=== PATIENT | female | born 1950 | race Caucasian/White ===

== ENCOUNTER 2024-11-15 00:56 | Inpatient (IN) | payer MEDICARE, MEDICAID ==
[2024-11-15 01:24] LABS: O2 DELIVERY DEVICE NASAL CANNULA
[2024-11-15 01:25] LABS: BASOPHILS PERCENT AUTO 0.2 % (0.0-1.0); EOSINOPHILS PERCENT AUTO 2.2 % (1.0-3.0); HEMATOCRIT 40.6 % (37.0-47.0); LYMPHOCYTES PERCENT AUTO 34.3 % (20.5-50.1); MEAN CORPUSCULAR HEMOGLOBIN 33.8 pg (27.0-34.0); MEAN CORPUSCULAR VOLUME 105.5 fL (80-100); MONOCYTES PERCENT AUTO 11.7 % (2-8); NEUTROPHILS PERCENT AUTO 51.6 % (42.2-75.2); PLATELET COUNT,PLT 108 10^3/uL (150-450); RED BLOOD CELL COUNT 3.85 10^6/uL (4.2-5.4)
[2024-11-15 01:41] LABS: PH,VENOUS 7.34 (7.31-7.41)
[2024-11-15 01:42] LABS: BASE EXCESS VENOUS 17.3 mmol/l ((-2)-(+3)); BICARBONATE,VENOUS 48 mmol/l (19-25); O2 SATURATION VENOUS 74.5 % (60-80); PCO2 VENOUS 91 mmHg (41-51); PO2 VENOUS 49 mmHg (35-42)
[2024-11-15 01:49] LABS: ALANINE AMINOTRANSFERASE,ALT 20 U/L (14-59); ALBUMIN 2.1 g/dL (3.4-5.0); ALKALINE PHOSPHATASE 128 U/L (46-116); ASPARTATE AMNIOTRANSFERASE,AST 37 U/L (15-37); BILIRUBIN TOTAL 0.3 mg/dL (0.2-1.0); BLOOD UREA NITROGEN,BUN 9 mg/dL (7-18); BUN/CREATININE RATIO 11.5 (No establ ref range); CALCIUM 8.5 mg/dL (8.5-10.1); CREATININE 0.78 mg/dL (0.55-1.02); GLUCOSE RANDOM 192 mg/dL (70-99); LACTIC ACID 1.8 mmol/L (0.4-2.0); MAGNESIUM 1.7 mg/dL (1.8-2.4); POTASSIUM,K 3.8 mmol/L (3.5-5.1); PROTEIN TOTAL,TP 7.6 g/dL (6.4-8.2); SODIUM,NA 141 mmol/L (136-145)
[2024-11-15 01:51] LABS: B-TYPE NATRIURETIC PEPTIDE,BNP 17 pg/ml (0-100)
[2024-11-15 01:55] LABS: ANION GAP 2.8 mEq/L (7-13); CARBON DIOXIDE,CO2 45 mmol/L (21-32); CHLORIDE,CL 97 mmol/L (98-107)
[2024-11-15] MEDS: Albuterol/Ipratropium 3.0-0.5 MG/3 ML Neb Soln NEB ONE (01:57)
[2024-11-15 01:58] LABS: A/G RATIO 0.38; ESTIMATED GFR 80 mL/min (>=60)
[2024-11-15 03:12] LABS: O2 DELIVERY DEVICE NASAL CANNULA
[2024-11-15 03:14] LABS: PH,VENOUS 7.32 (7.31-7.41)
[2024-11-15 03:15] LABS: BASE EXCESS VENOUS 16.9 mmol/l ((-2)-(+3)); BICARBONATE,VENOUS 47 mmol/l (19-25); O2 SATURATION VENOUS 50.8 % (60-80); PCO2 VENOUS 95 mmHg (41-51); PO2 VENOUS 35 mmHg (35-42)
[2024-11-15] MEDS: guaiFENesin/Dextromethorphan 100-10 MG/5 ML Soln 5 ML Cup PO ONE (03:25)
[2024-11-15] MEDS: methylPREDNISolone Sodium Succinate 125 MG/2 ML SDV IVPUSH ONE (03:54)
[2024-11-15 05:40] LABS: O2 DELIVERY DEVICE NASAL CANNULA
[2024-11-15 05:41] LABS: PH,VENOUS 7.31 (7.31-7.41)
[2024-11-15 05:42] LABS: BASE EXCESS VENOUS 15.8 mmol/l ((-2)-(+3)); BICARBONATE,VENOUS 46 mmol/l (19-25); O2 SATURATION VENOUS 82.3 % (60-80); PCO2 VENOUS 94 mmHg (41-51); PO2 VENOUS 56 mmHg (35-42)
[2024-11-15] MEDS ORDERED: Polyethylene Glycol 3350 Powder 17 GM Packet PO PRN (07:50)
[2024-11-15] MEDS ORDERED: Ondansetron 4 MG/2 ML SDV IVPUSH PRN (07:50)
[2024-11-15] MEDS ORDERED: Ketorolac 30 MG/ML SDV IVPUSH PRN (07:50)
[2024-11-15] MEDS: Iopamidol 755 Mg/ML 100 ML Bottle IVPUSH ONE (08:12)
[2024-11-15] MEDS ORDERED: Sennosides/Docusate Sodium 50-8.6 MG Tab PO PRN (08:20)
[2024-11-15] MEDS ORDERED: Magnesium Hydroxide 400 MG/5 ML Susp 30 ML Cup PO PRN (08:20)
[2024-11-15] MEDS ORDERED: Calcium Carbonate 500 MG Tab.Chew PO PRN (08:20)
[2024-11-15 08:47] LABS: INR 2.4 (0.9-1.2); PROTHROMBIN TIME 23.5 SEC (9.0-12.0); PTT,PARTIAL THROMBOPLSTIN TIME 35.3 SEC (22.0-34.0)
[2024-11-15] MEDS: cefTRIAXone 2 GM Vial IVPUSH SCH (09:39)
[2024-11-15] MEDS: Azithromycin 500 MG in Sodium Chloride 0.9% 250 ML IV SCH (09:46)
[2024-11-15 11:45] LABS: O2 DELIVERY DEVICE ROOM AIR
[2024-11-15 11:48] LABS: PH,VENOUS 7.33 (7.31-7.41)
[2024-11-15 11:50] LABS: BASE EXCESS VENOUS 15.9 mmol/l ((-2)-(+3)); BICARBONATE,VENOUS 46 mmol/l (19-25); O2 SATURATION VENOUS 92.7 % (60-80); PCO2 VENOUS 90 mmHg (41-51); PO2 VENOUS 71 mmHg (35-42)
[2024-11-15] MEDS ORDERED: Glucagon,Human Recombinant 1 MG Vial IM PRN (11:52)
[2024-11-15] MEDS ORDERED: 50% Dextrose in Water 50 ML Syringe IVPUSH PRN (11:52)
[2024-11-15] MEDS: atorvaSTATin 20 MG Tab PO SCH (13:03)
[2024-11-15] MEDS: Furosemide 20 MG Tab PO SCH (13:04)
[2024-11-15] MEDS: methylPREDNISolone Sodium Succinate 125 MG/2 ML SDV IVPUSH SCH (13:06)
[2024-11-15] MEDS: Insulin Lispro 100 Units/ML 3 ML Vial SUBCUT SCH (13:11)
[2024-11-15 14:14] LABS: O2 DELIVERY DEVICE BIPAP
[2024-11-15 14:15] LABS: PH,VENOUS 7.32 (7.31-7.41)
[2024-11-15 14:17] LABS: BICARBONATE,VENOUS 45 mmol/l (19-25); O2 SATURATION VENOUS 80.9 % (60-80); PCO2 VENOUS 90 mmHg (41-51); PO2 VENOUS 53 mmHg (35-42)
[2024-11-15] MEDS: Nystatin Topical Powder 60 GM Bottle TOP SCH (14:24)
[2024-11-15] MEDS: Albuterol/Ipratropium 3.0-0.5 MG/3 ML Neb Soln NEB SCH (14:24)
[2024-11-15] MEDS: Citric Acid/Sodium Citrate Solution 30 ML Cup PO SCH (14:24)
[2024-11-15] MEDS: Warfarin 2 MG Tab PO ONE (14:33)
[2024-11-15] MEDS: Albuterol/Ipratropium 3.0-0.5 MG/3 ML Neb Soln ONE (15:17)
[2024-11-15] MEDS: Metoprolol Tartrate 25 MG Tab PO SCH (15:26)
[2024-11-15] MEDS: guaiFENesin 600 MG Tab.ER PO SCH (17:22)
[2024-11-15] MEDS: amLODIPine 5 MG Tab PO SCH (20:23)
[2024-11-15] MEDS: Insulin Glarg,Human.Rec.Analog 100 Unit/ML 10 ML Vial SUBCUT SCH (23:15)
[2024-11-16 06:44] LABS: HEMATOCRIT 37.3 % (37.0-47.0); HEMOGLOBIN 11.5 g/dL (12.0-16.0); LYMPHOCYTES PERCENT AUTO 28.3 % (20.5-50.1); MEAN CORPUSCULAR HEMOGLOBIN 32.7 pg (27.0-34.0); MEAN CORPUSCULAR HGB CONC 30.8 g/dL (33.0-35.0); MONOCYTES PERCENT AUTO 4.4 % (2-8); NEUTROPHILS PERCENT AUTO 67.3 % (42.2-75.2); PLATELET COUNT,PLT 119 10^3/uL (150-450); RED BLOOD CELL COUNT 3.52 10^6/uL (4.2-5.4); WHITE BLOOD CELL COUNT,WBC 4.7 10^3/uL (5.0-10.0)
[2024-11-16 07:27] LABS: INR 2.2 (0.9-1.2); PROTHROMBIN TIME 21.7 SEC (9.0-12.0); PTT,PARTIAL THROMBOPLSTIN TIME 33.2 SEC (22.0-34.0)
[2024-11-16 07:41] LABS: ALBUMIN 2.2 g/dL (3.4-5.0); ANION GAP 3.6 mEq/L (7-13); BILIRUBIN TOTAL 0.3 mg/dL (0.2-1.0); CALCIUM 8.6 mg/dL (8.5-10.1); CREATININE 0.86 mg/dL (0.55-1.02); EST CRCL DRUG DOSING (CG) 49.56 mL/min; MAGNESIUM 1.8 mg/dL (1.8-2.4); POTASSIUM,K 3.6 mmol/L (3.5-5.1); PROTEIN TOTAL,TP 7.3 g/dL (6.4-8.2)
[2024-11-16 07:45] LABS: A/G RATIO 0.43
[2024-11-16] MEDS: Magnesium Oxide 400 MG Tab PO SCH (10:35)
[2024-11-16] MEDS: Insulin Glarg,Human.Rec.Analog 100 Unit/ML 10 ML Vial SUBCUT SCH ×2 (11:00→21:22)
[2024-11-16] MEDS: Warfarin** 1 MG TABLET PO ONE (14:33)
[2024-11-16 15:48] LABS: HEMOGLOBIN A1C 7.5 % (<5.7)
[2024-11-16] MEDS: Benzonatate 100 MG Cap PO PRN (15:54)
[2024-11-16] MEDS: Cyanocobalamin (Vitamin B12) 1,000 MCG Tab PO SCH (15:54)
[2024-11-16] MEDS: Folic Acid 1 MG Tab PO SCH (15:54)
[2024-11-16] MEDS: Furosemide 40 MG/4 ML VIAL IVPUSH SCH (15:56)
[2024-11-16] MEDS ORDERED: Insulin Glarg,Human.Rec.Analog 100 Unit/ML 10 ML Vial SUBCUT SCH (21:00)
[2024-11-16] MEDS: Melatonin 3 MG Tab PO PRN (21:17)
[2024-11-17] MEDS: Pantoprazole 40 MG Tab.CR PO SCH (04:50)
[2024-11-17 06:26] LABS: HEMATOCRIT 37.5 % (37.0-47.0); HEMOGLOBIN 11.6 g/dL (12.0-16.0); MEAN CORPUSCULAR HEMOGLOBIN 32.9 pg (27.0-34.0); MEAN CORPUSCULAR HGB CONC 30.9 g/dL (33.0-35.0); MEAN CORPUSCULAR VOLUME 106.2 fL (80-100); PLATELET COUNT,PLT 125 10^3/uL (150-450); RED BLOOD CELL COUNT 3.53 10^6/uL (4.2-5.4); WHITE BLOOD CELL COUNT,WBC 5.8 10^3/uL (5.0-10.0)
[2024-11-17 06:27] LABS: INR 2.1 (0.9-1.2); PROTHROMBIN TIME 20.6 SEC (9.0-12.0)
[2024-11-17 06:31] LABS: LYMPHOCYTES PERCENT AUTO 24.3 % (20.5-50.1); MONOCYTES PERCENT AUTO 3.6 % (2-8); NEUTROPHILS PERCENT AUTO 72.1 % (42.2-75.2)
[2024-11-17 06:35] LABS: ALBUMIN 2.2 g/dL (3.4-5.0); ANION GAP 3.6 mEq/L (7-13); BILIRUBIN TOTAL 0.2 mg/dL (0.2-1.0); BUN/CREATININE RATIO 24.5 (No establ ref range); CALCIUM 8.4 mg/dL (8.5-10.1); CREATININE 0.94 mg/dL (0.55-1.02); EST CRCL DRUG DOSING (CG) 45.34 mL/min; POTASSIUM,K 3.6 mmol/L (3.5-5.1); PROTEIN TOTAL,TP 7.2 g/dL (6.4-8.2)
[2024-11-17 06:37] LABS: A/G RATIO 0.44
[2024-11-17 06:55] LABS: LYMPHOCYTES % ATYPICAL MANUAL 3 %; LYMPHOCYTES PERCENT MAN 19 % (20-50); MONOCYTES PERCENT MAN 2 % (2-8); SEG NEUTROPHILS PERCENT MAN 76 % (42-75)
[2024-11-17] MEDS: Insulin Glarg,Human.Rec.Analog 100 Unit/ML 10 ML Vial SUBCUT SCH (08:50)
[2024-11-17] MEDS: Furosemide 40 MG/4 ML VIAL IVPUSH SCH (08:53)
[2024-11-17 09:50] LABS: O2 DELIVERY DEVICE NASAL CANNULA
[2024-11-17 09:51] LABS: ALLEN TEST Y; BASE EXCESS ARTERIAL 16 mmol/L ((-2)-(+3)); BICARBONATE,ARTERIAL 43.2 mmol/L (22-26); O2 FLOW RATE 3; O2 SATURATION ARTERIAL 94 % (95-100); PH,ARTERIAL 7.43 (7.35-7.45); PO2 ARTERIAL 74 mmHg (70-100)
[2024-11-17 09:53] LABS: PCO2 ARTERIAL 66 mmHg (35-45)
[2024-11-17 10:26] LABS: APPEARANCE,URINE CLOUDY (CLEAR); BILIRUBIN,URINE NEGATIVE (NEGATIVE); COLOR,URINE PINK (YELLOW); GLUCOSE,URINE 250 (NEGATIVE); KETONES,URINE NEGATIVE (NEGATIVE); LEUKOCYTE ESTERASE,URINE LARGE (NEGATIVE); NITRITE,URINE NEGATIVE (NEGATIVE); OCCULT BLOOD,URINE LARGE (NEGATIVE); PROTEIN,URINE TRACE (NEGATIVE); UROBILINOGEN,URINE 0.2 mg/dL (0.2-1.0)
[2024-11-17 10:40] LABS: BACTERIA,URINE FEW /HPF (0-FEW/HPF); EPITHELIAL CELLS,URINE FEW /HPF (NOT SEEN); MUCUS,URINE FEW /LPF (NOT SEEN); RBC,URINE PACKED /HPF (0-5); WBC,URINE PACKED /HPF (0-5/HPF); YEAST,URINE MODERATE /HPF (NOT SEEN)
[2024-11-17] MEDS ORDERED: Benzonatate 100 MG Cap PO PRN (12:15)
[2024-11-17] MEDS: Formoterol/Mometasone 200-5 MCG 8.8 GM Inhaler INH SCH (14:35)
[2024-11-17] MEDS: Warfarin 2 MG Tab PO ONE (16:09)
[2024-11-17] MEDS: methylPREDNISolone Sodium Succinate 125 MG/2 ML SDV IVPUSH SCH ×2 (17:04→22:28)
[2024-11-17] MEDS: Acetaminophen 325 MG Tab PO PRN (22:27)
[2024-11-17] MEDS: Benzonatate 100 MG Cap PO PRN (22:31)
[2024-11-18 06:32] LABS: HEMATOCRIT 36.2 % (37.0-47.0); HEMOGLOBIN 11.2 g/dL (12.0-16.0); MEAN CORPUSCULAR HEMOGLOBIN 32.5 pg (27.0-34.0); MEAN CORPUSCULAR HGB CONC 30.9 g/dL (33.0-35.0); MEAN CORPUSCULAR VOLUME 104.9 fL (80-100); MONOCYTES PERCENT AUTO 4.7 % (2-8); NEUTROPHILS PERCENT AUTO 71.3 % (42.2-75.2); PLATELET COUNT,PLT 53 10^3/uL (150-450); RED BLOOD CELL COUNT 3.45 10^6/uL (4.2-5.4); WHITE BLOOD CELL COUNT,WBC 4.7 10^3/uL (5.0-10.0)
[2024-11-18 06:43] LABS: INR 2.1 (0.9-1.2); PROTHROMBIN TIME 20.6 SEC (9.0-12.0)
[2024-11-18 06:47] LABS: ALBUMIN 2.2 g/dL (3.4-5.0); ANION GAP -0.2 mEq/L (7-13); BILIRUBIN TOTAL 0.2 mg/dL (0.2-1.0); BUN/CREATININE RATIO 34.8 (No establ ref range); CALCIUM 8.1 mg/dL (8.5-10.1); CREATININE 0.69 mg/dL (0.55-1.02); EST CRCL DRUG DOSING (CG) 61.77 mL/min; POTASSIUM,K 3.8 mmol/L (3.5-5.1); PROTEIN TOTAL,TP 7.1 g/dL (6.4-8.2)
[2024-11-18 06:53] LABS: A/G RATIO 0.45
[2024-11-18 07:40] LABS: CHOLESTEROL HDL 45 mg/dL (40-59); CHOLESTEROL LDL CALCULATED 54 mg/dL (0-100); CHOLESTEROL TOTAL 115 mg/dL (0-199); TRIGLYCERIDES 80 mg/dL (0-149)
[2024-11-18] MEDS: Fluconazole 100 MG Tab PO SCH (08:43)
[2024-11-18] MEDS: Warfarin 2 MG Tab PO ONE (14:01)
[2024-11-18] MEDS: Docusate Sodium 100 MG Cap PO PRN (20:34)
[2024-11-19 06:13] LABS: HEMATOCRIT 40.4 % (37.0-47.0); HEMOGLOBIN 12.6 g/dL (12.0-16.0); LYMPHOCYTES PERCENT AUTO 30.6 % (20.5-50.1); MEAN CORPUSCULAR HEMOGLOBIN 32.3 pg (27.0-34.0); MEAN CORPUSCULAR HGB CONC 31.2 g/dL (33.0-35.0); MEAN CORPUSCULAR VOLUME 103.6 fL (80-100); MONOCYTES PERCENT AUTO 4.9 % (2-8); NEUTROPHILS PERCENT AUTO 64.5 % (42.2-75.2); PLATELET COUNT,PLT 126 10^3/uL (150-450); WHITE BLOOD CELL COUNT,WBC 4.9 10^3/uL (5.0-10.0)
[2024-11-19 06:35] LABS: INR 2.3 (0.9-1.2); PROTHROMBIN TIME 22.8 SEC (9.0-12.0)
[2024-11-19 06:42] LABS: ALANINE AMINOTRANSFERASE,ALT 52 U/L (14-59); ALBUMIN 2.4 g/dL (3.4-5.0); ALKALINE PHOSPHATASE 84 U/L (46-116); ASPARTATE AMNIOTRANSFERASE,AST 84 U/L (15-37); BILIRUBIN TOTAL 0.3 mg/dL (0.2-1.0); BLOOD UREA NITROGEN,BUN 27 mg/dL (7-18); CALCIUM 8.1 mg/dL (8.5-10.1); CHLORIDE,CL 96 mmol/L (98-107); CREATININE 0.73 mg/dL (0.55-1.02); EST CRCL DRUG DOSING (CG) 58.38 mL/min; GLUCOSE RANDOM 163 mg/dL (70-99); MAGNESIUM 2.2 mg/dL (1.8-2.4); POTASSIUM,K 3.7 mmol/L (3.5-5.1); PROTEIN TOTAL,TP 7.4 g/dL (6.4-8.2); SODIUM,NA 141 mmol/L (136-145)
[2024-11-19 06:53] LABS: A/G RATIO 0.48; ESTIMATED GFR 86 mL/min (>=60)
[2024-11-19 06:54] LABS: ANION GAP 3.69999 mEq/L (7-13); CARBON DIOXIDE,CO2 > 45 mmol/L (21-32)
[2024-11-19] MEDS: Furosemide 20 MG/2 ML VIAL IVPUSH SCH (08:23)
[2024-11-19] MEDS: methylPREDNISolone Sodium Succinate 125 MG/2 ML SDV IVPUSH SCH (08:24)
[2024-11-19] MEDS: Metoprolol Tartrate 50 MG Tab PO SCH (08:24)
[2024-11-19] MEDS ORDERED: Albuterol/Ipratropium 3.0-0.5 MG/3 ML Neb Soln NEB PRN (09:15)
[2024-11-19 09:55] LABS: O2 DELIVERY DEVICE NASAL CANNULA; PH,VENOUS 7.44 (7.31-7.41)
[2024-11-19 09:59] LABS: BASE EXCESS VENOUS 18.7 mmol/l ((-2)-(+3)); BICARBONATE,VENOUS 47 mmol/l (19-25); O2 SATURATION VENOUS 95.7 % (60-80); PCO2 VENOUS 71 mmHg (41-51); PO2 VENOUS 83 mmHg (35-42)
[2024-11-19] MEDS: Warfarin 2 MG Tab PO SCH (13:02)
[2024-11-19] MEDS: Insulin Glarg,Human.Rec.Analog 100 Unit/ML 10 ML Vial SUBCUT SCH (20:26)
[2024-11-20 06:18] LABS: HEMATOCRIT 39.8 % (37.0-47.0); LYMPHOCYTES PERCENT AUTO 24.4 % (20.5-50.1); MEAN CORPUSCULAR HEMOGLOBIN 32.6 pg (27.0-34.0); MEAN CORPUSCULAR HGB CONC 32.7 g/dL (33.0-35.0); MEAN CORPUSCULAR VOLUME 99.7 fL (80-100); MONOCYTES PERCENT AUTO 5.1 % (2-8); NEUTROPHILS PERCENT AUTO 70.5 % (42.2-75.2); PLATELET COUNT,PLT 133 10^3/uL (150-450); RED BLOOD CELL COUNT 3.99 10^6/uL (4.2-5.4); WHITE BLOOD CELL COUNT,WBC 4.7 10^3/uL (5.0-10.0)
[2024-11-20 06:34] LABS: INR 2.7 (0.9-1.2); PROTHROMBIN TIME 26.3 SEC (9.0-12.0)
[2024-11-20 06:37] LABS: ALBUMIN 2.4 g/dL (3.4-5.0); ANION GAP 2.6 mEq/L (7-13); BILIRUBIN TOTAL 0.3 mg/dL (0.2-1.0); BUN/CREATININE RATIO 34.7 (No establ ref range); CALCIUM 8.2 mg/dL (8.5-10.1); CREATININE 0.75 mg/dL (0.55-1.02); EST CRCL DRUG DOSING (CG) 56.83 mL/min; MAGNESIUM 2.2 mg/dL (1.8-2.4); POTASSIUM,K 3.6 mmol/L (3.5-5.1); PROTEIN TOTAL,TP 7.2 g/dL (6.4-8.2)
[2024-11-20 06:39] LABS: A/G RATIO 0.5
[2024-11-20] MEDS: methylPREDNISolone Sodium Succinate 40 MG/1 ML SDV IVPUSH SCH (09:55)
[2024-11-20] MEDS: Insulin Glarg,Human.Rec.Analog 100 Unit/ML 10 ML Vial SUBCUT SCH (09:58)
[2024-11-20] MEDS: Warfarin 2 MG Tab PO ONE (13:39)
[2024-11-21 06:45] LABS: BASOPHILS PERCENT AUTO 0.1 % (0.0-1.0); HEMATOCRIT 40.1 % (37.0-47.0); HEMOGLOBIN 13.5 g/dL (12.0-16.0); LYMPHOCYTES PERCENT AUTO 25.2 % (20.5-50.1); MEAN CORPUSCULAR HEMOGLOBIN 33.3 pg (27.0-34.0); MEAN CORPUSCULAR HGB CONC 33.7 g/dL (33.0-35.0); MONOCYTES PERCENT AUTO 5.8 % (2-8); NEUTROPHILS PERCENT AUTO 68.9 % (42.2-75.2); PLATELET COUNT,PLT 144 10^3/uL (150-450); RED BLOOD CELL COUNT 4.05 10^6/uL (4.2-5.4)
[2024-11-21 06:55] LABS: INR 3.2 (0.9-1.2)
[2024-11-21 07:01] LABS: A/G RATIO 0.52; ALBUMIN 2.4 g/dL (3.4-5.0); ANION GAP 3.5 mEq/L (7-13); BILIRUBIN TOTAL 0.3 mg/dL (0.2-1.0); BUN/CREATININE RATIO 39.4 (No establ ref range); CALCIUM 8.3 mg/dL (8.5-10.1); CREATININE 0.71 mg/dL (0.55-1.02); EST CRCL DRUG DOSING (CG) 60.03 mL/min; MAGNESIUM 2.2 mg/dL (1.8-2.4); POTASSIUM,K 4.5 mmol/L (3.5-5.1)
[2024-11-21] MEDS ORDERED: Insulin Glarg,Human.Rec.Analog 100 Unit/ML 10 ML Vial SUBCUT SCH ×2 (09:00→21:00)
[2024-11-21] MEDS: methylPREDNISolone Sodium Succinate 40 MG/1 ML SDV IVPUSH SCH (10:29)
[2024-11-21] MEDS: Warfarin** 1 MG TABLET PO ONE (14:06)
[2024-11-22 06:44] LABS: BASOPHILS PERCENT AUTO 0.2 % (0.0-1.0); HEMATOCRIT 41.2 % (37.0-47.0); HEMOGLOBIN 13.3 g/dL (12.0-16.0); LYMPHOCYTES PERCENT AUTO 19.9 % (20.5-50.1); MEAN CORPUSCULAR HEMOGLOBIN 32.6 pg (27.0-34.0); MEAN CORPUSCULAR HGB CONC 32.3 g/dL (33.0-35.0); MONOCYTES PERCENT AUTO 6.1 % (2-8); NEUTROPHILS PERCENT AUTO 73.8 % (42.2-75.2); PLATELET COUNT,PLT 149 10^3/uL (150-450); RED BLOOD CELL COUNT 4.08 10^6/uL (4.2-5.4); WHITE BLOOD CELL COUNT,WBC 5.5 10^3/uL (5.0-10.0)
[2024-11-22 07:15] LABS: ALBUMIN 2.5 g/dL (3.4-5.0); ANION GAP 7.5 mEq/L (7-13); BILIRUBIN TOTAL 0.5 mg/dL (0.2-1.0); BUN/CREATININE RATIO 38.5 (No establ ref range); CALCIUM 8.4 mg/dL (8.5-10.1); CREATININE 0.78 mg/dL (0.55-1.02); EST CRCL DRUG DOSING (CG) 54.64 mL/min; MAGNESIUM 2.2 mg/dL (1.8-2.4); POTASSIUM,K 4.5 mmol/L (3.5-5.1); PROTEIN TOTAL,TP 6.9 g/dL (6.4-8.2)
[2024-11-22 07:16] LABS: A/G RATIO 0.57
[2024-11-22 07:43] VITALS: BP 127/54; PULSE 75
[2024-11-22 08:01] LABS: INR 2.9 (0.9-1.2); PROTHROMBIN TIME 28.4 SEC (9.0-12.0)
[2024-11-22] MEDS ORDERED: methylPREDNISolone Sodium Succinate 40 MG/1 ML SDV IVPUSH SCH (09:00)
[2024-11-22] MEDS: Warfarin 2 MG Tab PO ONE (09:20)
== END 2024-11-22 10:05 | DRG 193 ==
LOC: DL.ED 00:56 → DL.MS 06:18 → DL.ED 06:23
PROVIDERS: ADMIT Internal Medicine; ATTEND Student in an Organized Health Care Education/Training Program
PROC: 4A133R1 Monitoring of Arterial Saturation, Peripheral, Percutaneous Approach (ICD-10-PCS; principal; 2024-11-15)
DX: J96.22 Acute and chronic respiratory failure with hypercapnia (principal); E66.9 Obesity, unspecified; J18.9 Pneumonia, unspecified organism; J44.9 Chronic obstructive pulmonary disease, unspecified; E11.9 Type 2 diabetes mellitus without complications; J96.02 Acute respiratory failure with hypercapnia; E87.4 Mixed disorder of acid-base balance; J44.0 Chronic obstructive pulmonary disease with (acute) lower respiratory infection; Z88.8 Allergy status to other drugs, medicaments and biological substances; J44.1 Chronic obstructive pulmonary disease with (acute) exacerbation; E66.2 Morbid (severe) obesity with alveolar hypoventilation; Z68.43 Body mass index [BMI] 50.0-59.9, adult; I10 Essential (primary) hypertension; J44.89 Other specified chronic obstructive pulmonary disease; H54.7 Unspecified visual loss; I48.91 Unspecified atrial fibrillation; K59.09 Other constipation; M19.90 Unspecified osteoarthritis, unspecified site; F43.10 Post-traumatic stress disorder, unspecified; E88.09 Other disorders of plasma-protein metabolism, not elsewhere classified; E83.42 Hypomagnesemia; D69.6 Thrombocytopenia, unspecified; D72.819 Decreased white blood cell count, unspecified; R73.9 Hyperglycemia, unspecified; E53.8 Deficiency of other specified B group vitamins; D53.9 Nutritional anemia, unspecified; Z90.49 Acquired absence of other specified parts of digestive tract; Z90.710 Acquired absence of both cervix and uterus; Z98.891 History of uterine scar from previous surgery; Z87.442 Personal history of urinary calculi; Z98.890 Other specified postprocedural states; Z88.6 Allergy status to analgesic agent; Z88.5 Allergy status to narcotic agent; Z88.0 Allergy status to penicillin; Z88.2 Allergy status to sulfonamides; Z79.1 Long term (current) use of non-steroidal anti-inflammatories (NSAID); Z86.718 Personal history of other venous thrombosis and embolism; Z86.711 Personal history of pulmonary embolism; Z79.02 Long term (current) use of antithrombotics/antiplatelets; Z87.440 Personal history of urinary (tract) infections; Z79.01 Long term (current) use of anticoagulants; Z79.899 Other long term (current) drug therapy
CPT/HCPCS: 36415; 36600; 51702; 71045; 71275; 80053; 80061; 80179; 81001; 82607; 82746; 82803; 82947; 83036; 83605; 83735; 83880; 84484; 85025; 85049; 85610; 85730; 87086; 87088; 87186; 87428-QW; 93005; 93010; 94640; 94660; 94664; 99223; 99232; 99233; 99238; 99291; A9270-GY; J0456; J0696; J1815-GY; J1940; J2919; J3490; J7050; J7620-GY; Q9967

== ENCOUNTER 2025-03-05 14:29 | Emergency (ER) | payer MEDICARE, MEDICAID ==
[2025-03-05 14:56] LABS: BASOPHILS PERCENT AUTO 0.2 % (0.0-1.0); EOSINOPHILS PERCENT AUTO 1.8 % (1.0-3.0); HEMATOCRIT 38.3 % (37.0-47.0); HEMOGLOBIN 13.2 g/dL (12.0-16.0); MEAN CORPUSCULAR HEMOGLOBIN 34.6 pg (27.0-34.0); MEAN CORPUSCULAR HGB CONC 34.5 g/dL (33.0-35.0); MEAN CORPUSCULAR VOLUME 100.5 fL (80-100); MONOCYTES PERCENT AUTO 13.5 % (2-8); NEUTROPHILS PERCENT AUTO 48.5 % (42.2-75.2); PLATELET COUNT,PLT 117 10^3/uL (150-450); RED BLOOD CELL COUNT 3.81 10^6/uL (4.2-5.4)
[2025-03-05 15:19] LABS: ALBUMIN 2.2 g/dL (3.4-5.0); BILIRUBIN TOTAL 0.5 mg/dL (0.2-1.0); BUN/CREATININE RATIO 10.8 (No establ ref range); CREATININE 0.93 mg/dL (0.55-1.02); EST CRCL DRUG DOSING (CG) 41.97 mL/min; MAGNESIUM 1.6 mg/dL (1.8-2.4); POTASSIUM,K 3.7 mmol/L (3.5-5.1); PROTEIN TOTAL,TP 7.2 g/dL (6.4-8.2)
[2025-03-05 15:23] LABS: ANION GAP 3.7 mEq/L (7-13)
[2025-03-05 15:24] LABS: A/G RATIO 0.44
[2025-03-05 15:52] VITALS: BP 128/76; PULSE 86
== END 2025-03-05 16:02 ==
LOC: DL.ED 14:29
DX: J06.9 Acute upper respiratory infection, unspecified (principal); I10 Essential (primary) hypertension; E87.70 Fluid overload, unspecified; E66.9 Obesity, unspecified; E11.9 Type 2 diabetes mellitus without complications; Z88.8 Allergy status to other drugs, medicaments and biological substances; Z88.5 Allergy status to narcotic agent; Z88.2 Allergy status to sulfonamides; Z79.899 Other long term (current) drug therapy; Z68.43 Body mass index [BMI] 50.0-59.9, adult
CPT/HCPCS: 36415; 71045; 80053; 83735; 83880; 84484; 85025; 99284; 99285